=== PATIENT | female | born 1990 | race Caucasian/White ===

== ENCOUNTER 2023-11-01 19:57 | Outpatient (REF) | payer BC, SELFPAY ==
[2023-11-06 09:07] LABS: Age Gdln ACOG Testing Note (.); HPV Aptima Negative (Negative); IGP, Aptima HPV, rfx 16/18,45 Note (.)
== END 2023-11-01 19:58 | disposition home or self-care (01) ==
LOC: LAB 19:57
PROVIDERS: Visit Provider Physician Assistant
DX: Z01.419 Encounter for gynecological examination (general) (routine) without abnormal findings (principal)
CPT/HCPCS: 87624; G0145

== ENCOUNTER 2024-12-30 20:46 | Outpatient (REF) | payer BC, SELFPAY ==
--- OUTSIDE RECORDS SUMMARY | 2024-12-30 20:50 | XMS_ITS | CCD ---
Author Organization [facility] Care Team Providers Care Putty Maker Name Role Phone OCTAVIANO, DR GRAYSON Canales Admitting Unavailable OCTAVIANO, DR GRAYSON Canales Attending Unavailable RACHELLE, DR MARMOLEJO Primary Care Unavailable OCTAVIANO, DR GRAYSON Canales Consulting Unavailable OCTAVIANO, DR GRAYSON Canales Admitting Unavailable OCTAVIANO, DR GRAYSON Canales Attending Unavailable RACHELLE, DR MARMOLEJO Primary Care Unavailable ADELAIDA, DR REEDER Admitting Unavailable ADELAIDA, DR REEDER Attending Unavailable RACHELLE, DR MARMOLEJO Primary Care Unavailable ADELAIDA, DR REEDER Consulting Unavailable PRINCESS DUDLEY Attending Unavailable ADELAIDA, VARINDER Attending Unavailable George Oreilly MD Primary Care Provider Medications Current Medications Medication Drug Class(es) Dates Sig (Normalized) Sig (Original) citalopram 20 mg oral tablet (2 sources) Serotonin Reuptake Inhibitor citalopram (CeleXA) 20 MG tablet Active Ethinyl Estradiol / Ferrous fumarate / Norethindrone (4 sources) Estrogen Start: 07-22-2024 End: 08-19-2024 take 1 tablet by mouth once daily, then take 1 tablet by mouth once daily norethindrone-eth inyl estradiol (11/18) 1-20 MG-MCG tablet Indications: control counseling Take 1 tablet by mouth Daily for 28 days Take 1 tablet by mouth daily 28 tablet 11 07/22/2024 08/19/2024 Active End: 07-22-2024 norethindrone-ethinyl estrad iol (11/18) 1-20 MG-MCG tablet Take 1 tablet by mouth Daily 07/22/2024 Discontinued (Therapy completed) valACYclovir 500 mg oral tablet (2 sources) Herpesvirus Nucleoside Analog DNA Polymerase Inhibitor, Herpes Simplex Virus Nucleoside Analog DNA Polymerase Inhibitor, Herpes Zoster Virus Nucleoside Analog DNA Polymerase Inhibitor Start: 07-22-2024 End: 08-21-2024 take 1 tablet by mouth once daily valACYclovir (Valtrex) 500 MG tablet Indications: HSV (herpes simplex virus) infection Take 1 tablet (500 mg) by mouth Daily 30 tablet 11 07/22/2024 08/21/2024 Active Completed/Discontinued Medications Medication Drug Class(es) Dates Sig (Normalized) Sig (Original) busPIRone hydrochloride 7.5 mg oral tablet (3 sources) Start: 08-28-2023 End: 07-22-2024 take 1 tablet by mouth in the morning busPIRone (Buspar) 7.5 MG tablet Take 7.5 mg by mouth in the morning and 7.5 mg before bedtime. 08/28/2023 07/22/2024 Discontinued 24 hr venlafaxine 75 mg extended release oral capsule (3 sources) Serotonin and Norepinephrine Reuptake Inhibitor End: 07-22-2024 take 1 capsule by mouth every twenty-four hours in the morning venlafaxine XR (Effexor XR) 75 MG 24 hr capsule Take 75 mg by mouth in the morning. Do not crush or chew.. 07/22/2024 Discontinued Problems Active Problems Problem Classification Problem Date Documented Date Episodic/Chronic Anxiety disorders (3 sources) Generalized anxiety disorder; Translations: [Generalized anxiety disorder] Onset: 10-11-2023 10-11-2023 Chronic Immunizations and screening for infectious disease (1 source) Encounter for screening for human papillomavirus (HPV); Translations: [ENC SCREENING HUMAN PAPILLOMAVIRUS] Onset: 09-29-2021 Episodic Other aftercare (5 sources) Patient encounter status; Translations: [Other oysterman (current) drug therapy] Onset: 10-11-2023 10-11-2023 Episodic Other screening for suspected conditions (not mental disorders or infectious disease) (4 sources) Encounter for screening for malignant neoplasm of cervix; Translations: [ENC SCREENING MALIG NEOPLASM CERV] Onset: 09-20-2021 Episodic Other upper respiratory disease (3 sources) Allergic rhinitis due to animals; Translations: [Allergic rhinitis due to animal (cat) (dog) hair and dander] Onset: 10-11-2023 10-11-2023 Chronic Viral infection (5 sources) Herpes simplex; Translations: [Herpesviral infection, unspecified] Onset: 10-11-2023 10-11-2023 Episodic Past or Other Problems Problem Classification Problem Date Documented Da te Episodic/Chronic Other nutritional; endocrine; and metabolic disorders (3 sources) Overweight; Translations: [Overweight] Onset: 10-11-2023 10-11-2023 Episodic Residual codes; unclassified (3 sources) Insomnia; Translations: [Sleep disorder, unspecified] Onset: 10-11-2023 10-11-2023 Episodic Varicose veins of lower extremity (7 sources) Varicose veins of bilateral lower extremities with pain; Translations: [Varicose veins of lower extremity] Onset: 11-26-2021 Episodic Results Test Name Value Interpretation Reference Range Facility Cytology Cervical or vaginal smear or [facility]-26 VC COMP CONSULTATION Patient: KHLOE VOSS Exam Date: 11/26/2021 : 1990 Gender:F Ordering : DR GRAYSON BRUMFIELD M.D. Admission #: [id number] Family : Order #: [id number] CLICK HERE TO VIEW EXAM CORRECTION Corrected on: 11/26/2021; RADIOLOGY REPORT PROCEDURE: VC VEIN CENTER CONSULTATION VEIN CENTER - OFFICE VISIT INITIAL COMPARISON: None. PROGRESS NOTES: 31-year-old female who presents with a 3 year history of lower extremity varicose veins. The patient complains of bulging dilated varicose veins with muscle cramps and swelling. This began after her last . The patient's rates her pain as a 4 on a scale of 1-10. 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 The patient does get relief with leg elevation and rest which is difficult to do well she is working. The patient's symptoms have progressed over the last year. The patient has worn compression stockings for approximately 3 years. Occasional over the counter analgesics for the pain. The patient denies any signs and symptoms to suggest arterial ischemia. The patient describes a family history significant for varicose veins in her mother. . Her younger child is 3 years old. The patient has never smoked. No drug use. Occasional social alcohol use. No history of deep venous thrombus or pulmonary embolus. See separate history and physical for medication list. No prior treatment for varicose or spider veins. Nursing notes were reviewed. After history and physical exam I discussed at length the pathophysiology of venous hypertension and possible treatments, therapies and strategies available. We discussed at length the importance of elevating the lower extremities above the level of the heart, increased physical activity and compression stocking use. Ultrasound venous reflux study performed the same day was discussed at length with the patient. The report demonstrates moderate right great and small saphenous vein venous insufficiency. Mild to moderate left great saphenous vein venous insufficiency. Bilateral branch saphenous incompetent tributaries/varicose veins. PHYSICAL EXAM: The right leg demonstrates scattered varicose veins along the posterior thigh and popliteal fossa extending to the great saphenous vein. No subcutaneous edema, active ulceration, erythema or hemosiderin staining. The left leg demonstrates scattered varicose veins along the posterior thigh and popliteal fossa extending to the great saphenous vein. No subcutaneous edema, active ulceration, erythema or hemosiderin staining. Both thighs, legs and feet were symmetrically warm to the touch. Good posterior tibial and dorsalis pedis pulses were present bilaterally. IMPRESSION: 1. Moderate right great and small saphenous vein, [id number] left small saphenous vein venous insufficiency 2. Moderate bilateral lower extremity varicose veins, tributaries off the great saphenous veins 3. No lower extremity subcutaneous edema 4. No flow significant arterial disease 5. CEAP: C2, Ep, As, Pr PLAN: 1. Endovenous laser ablation right great saphenous vein, possibly right small saphenous vein in the future 2. Microfoam chemical ablation bilateral branch saphenous tributaries / varicose veins 3. oil heaterman use of 20-30mm of compression stockings 4. Elevated legs and increased physical activity for symptomatic relief Nurse notes, history and physical were reviewed and confirmed, see attached forms. The nurse was present throughout the physical exam and consultation Dictated by: Grayson Brumfield MD on 11/26/2021 at 14:40 Approved by: Grayson Brumfield MD on 11/26/2021 at 14:46 Normal [facility] VC VENOUS REFLUX ROLAND LMTon 0 11-26-2021 VC VENOUS REFLUX ROLAND LMT Patient: KHLOE VOSS Exam Date: 11/26/2021 : 1990 Gender:F Ordering : DR GRAYSON BRUMFIELD M.D. Admission #: [id number] Family : Order #: [id number] CLICK HERE TO VIEW EXAM RADIOLOGY REPORT PROCEDURE: VEIN CENTER ULTRASOUND VENOUS REFLUX BILATERAL LIMTED COMPARISON: None. INDICATIONS: Pain co-occurrent and due to varicose veins of bilateral legs I83.813 TECHNIQUE: Duplex imaging of the lower extremity to assess the deep and superficial venous system for the presence of deep or superficial venous incompetence and to document the location and severity of disease. The study includes evaluation of the great saphenous vein (GSV), anterior accessory saphenous vein (AASV) and small saphenous vein (SSV). Patient scanned in reverse Trendelenburg and standing. FINDINGS: RIGHT LOWER EXTREMITY: Saphenofemoral Junction Reflux: Yes 7.8mm 0.5 sec GSV: Diam (mm) Reflux/ Time (sec) Proximal Thigh 6.2 No Mid Thigh 5.4 Yes 5.1 Distal Thigh 4.4 Yes 4.7 Prox Calf 2.5 Yes 3.6 Mid Calf 3.5 Yes 6.0 Saphenopopliteal Junction Reflux: 3.2mm No SSV: Proximal Calf 3.7 Yes 5.5 Mid Calf 2.4 No AASV: Proximal Thigh 3.0 No Mid Thigh Distal Thigh Thrombi: None. Compressibility: Normal. Flow: Normal. Preforator: Small counter tender proximal medial thigh measures 2.2 mm. Tech Note: Incompetent right SFJ, competent SPJ. Incompetent varicose vein arising from distal thigh GSV measures 5.1 mm with 6.3 seconds of reflux. Extends to popliteal and mid posterior calf. LEFT LOWER EXTREMITY: Saphenofemoral Junction Reflux: No 8.4 mm 0 sec GSV: Diam (mm) Reflux/Time (sec) Proximal Thigh 4.6 No Mid Thigh 5.2 No Distal Thigh 4.9 No Prox Calf 2.7 Yes 3.2 Mid Calf 2.9 Yes 1.4 Saphenopopliteal Junction Relux: 3.5 mm No SSV: Proximal Calf 4.7 No Mid Calf 3.4 No AASV: Proximal Thigh 3.0 No Mid Thigh Distal Thigh Thrombi: None. Compressibility: Normal. Flow: Normal. Monitoring Engineer: Distal calf medial, measures 2.0 mm with 1.5 seconds of reflux. Distal medial thigh, 2.5 mm. Tech Note: Incompetent posterior leg varicose vein from prox thigh to mid calf measures 4.8 mm with 3.3 seconds of reflux. CONCLUSION: 1. Moderate right great and small saphenous vein venous insufficiency 2. Mild to moderate venous insufficiency distal left great saphenous vein 3. Incompetent thigh leg varicose veins arising from the great saphenous veins Dictated by: Grayson Brumfield MD on 11/26/2021 at 14:11 Approved by: Grayson Brumfield MD on 11/26/2021 at 14:13 Normal [facility] PAP ACOG PANEL 2: 30 to 65on 09-27-2021 . . Normal [facility] Comment on above: Result Comment: Perf ormed at: WB Performed By: #### [id number] #### [facility] [address] [place] [address] Dr. Deana Sepulveda Age Gdln ACOG Testing 30-65 Normal [facility] Comment on above: Performed By: #### [id number] #### [facility] [address] [place] [address] Dr. Deana Sepulveda DIAGNOSIS: Comment Normal [facility] Comment on above: Result Comment: NEGA TIVE FOR INTRAEPITHELIAL LESION OR MALIGNANCY. Performed at: WB Performed By: #### [id number] #### [facility] [address] [address] [address] Deana Sepulveda HPV Aptima Negative Normal Negative [facility] Comment on above: Result Comment: This nucleic acid amplification test detects fourteen high-risk HPV types (16,18,31,33,35,39,45,51,52,56,58,59,66,68) without differentiation. Performed at: =G Performed By: #### [id number] #### [facility] [address] [address] [address] Deana Sepulveda Methodology: Comment Normal [facility] Comment on above: Result Comment: This liquid based ThinPrep(R) pap test was screened with the use of an image guided system. Performed at: WB Performed By: #### [id number] #### [facility] [address] [place] [address] Dr. Deana Sepulveda Note: Comment Normal [facility] Comment on above: Result Comment: The Pap smear is a screening test designed to aid in the detection of premalignant and malignant conditions of the uterine cervix. It is not a diagnostic procedure and should not be used as the sole means of detecting cervical cancer. Both false-positive and false-negative reports do occur. . Performed at: WB Performed By: #### [id number] #### [facility] [address] [place] [address] Dr. Deana Sepulveda Performed by: Comment Normal [facility] Comment on above: Result Comment: Papito Britt, Division Commander (ASCP) Performed at: WB Performed By: #### [id number] #### [facility] [address] [address] [address] Deana Sepulveda Specimen adequacy: Comment Normal [facility] Comment on above: Result Comment: Sati sfactory for evaluation. Endocervical and/or squamous metaplastic cells (endocervical component) are present. Performed at: WB Performed By: #### [id number] #### [facility] [address] [place] [address] Dr. Deana Sepulveda Vital Signs Date Time Vital Sign Value Performing Clinician Faci lity 07-22-2024 11:04-0400 Body weight 81.65 kg Varinder Adelaida DO Work Phone: [facility] 07-22-2024 11:04-0400 Diastolic blood pressure 72 mm[Hg] Varinder Adelaida DO Work Phone: [facility] 07-22-2024 11:04-0400 Systolic blood pressure 180 mm[Hg] Varinder Adelaida DO Work Phone: [facility] Encounters Encounter Date Encounter Type Care Provider Facility Start: 07-22-2024 End: 07-22-2024 Bamboo flowsheet Varinder Adelaida DO Work Phone: [facility] Start: 07-22-2024 End: 07-22-2024 Bamboo flowsheet Varinder Adelaida DO Work Phone: [facility] Start: 07-22-2024 End: 07-22-2024 ambulatory VARINDER ADELAIDA Not Available Start: 07-22-2024 End: 07-22-2024 Office outpatient visit 15 minutes Varinder Adelaida DO Work Phone: [facility] Comment on above: control counse elisabeth; HSV (herpes simplex virus) infection Start: 11-01-2023 End: 11-01-2023 ambulatory PRINCESS DUDLEY Not Available Start: 12-28-[address] GRAYSON BRUMFIELD Facilit y:[facility] Start: 11-26-2021 End: 11-27-[address] GRAYSON BRUMFIELD Facility:[facility] Start: 09-20-2021 End: 09-20-[address] VARINDER SON Facility:[facility] Procedures Date Procedure Procedure Detail Performing Clinician Start: 11-01-2023 Microscopic observat ion [Identifier] in Cervix by Cyto stain Varinder Son DO Work Phone: Start: 11-01-2023 Cytp cerv/vag auto t hin layer prep mnl screen Princess Dudley PA Work Phone: Plan of Treatment Date Care Activity Detail Author Start: 11-01-2028 Screening for malign ant neoplasm of cervix [facility] Start: 01-08-2025 End: 01-08-2025 Patient encounter procedure 01/08/2025 10:00 AM EDT Office Visit [facility] [address] [place] [address] Varinder Son, DO [address] [place] [address] [facility] Start: 06-30-2024 Influenza vaccination Influenza Vacc ine (#1) [facility] Start: 2021 Screening for malign ant neoplasm of cervix [facility] Start: 01-18-2012 Screening for malign ant neoplasm of cervix Pap Smear [facility] Immunizations Immunization Date Immunization Notes Care Provider Fa cility 07-28-2020 influenza virus vacc ine, unspecified formulation Varinder Son DO Work Phone: [facility] Payers Date Payer Category Payer Unknown BCBS BCBS xxxxxx [id number] 2017-Present [phone] [address] [place] [address] [id number] 1990 Unknown [id number] 1990 Unknown [id number] 1990 Unknown [id number] 1990 Unknown [id number] 1990 Unknown [id number] 1958 Unknown [id number] Social History Date Type Detail Facility Start: 10-11-2023 Tobacco smoking stat [facility] Never smoked tobacco [facility] Start: 10-11-2023 History of Social function [facility] Start: 10-11-2023 Tobacco use panel [facility] Start: 1990 Sex assigned at Female [facility] Start: 10-04-2023 Gender identity Identifies as female gender (finding) [facility] Start: 10-04-2023 Sexual orientation Pansexual [facility] History of Present illness Narrative 07-22-2024 Alecia Schmitt LPN - 07/22/2024 10:40 AM EDT Note Date & Type Note Facility 07-22-2024 History of Presen t illness Narrative Reason for Appointment: Patient ID: Khloe Voss is a 34 y.o. female who presents for Contraception (Pt present today to discuss b/c) Patient presents today for Consult appointment. MEDICATIONS Current Outpatient Medications Medication Instructions citalopram (CeleXA) 20 MG tablet ALLERGIES No Known Allergies PROBLEMS Active Ambulatory Problems Diagnosis Date Noted Allergic rhinitis due to animals 10/11/2023 Generalized anxiety disorder (CMS/HCC) 10/11/2023 HSV (herpes simplex virus) infection 10/11/2023 Medication management 10/11/2023 Overweight 10/11/2023 Trouble in sleeping 10/11/2023 Varicose veins of bilateral lower extremities with pain 10/11/2023 Resolved Ambulatory Problems Diagnosis Date Noted No Resolved Ambulatory Problems Past Medical History: Diagnosis Date Emphysema of lung (CMS/HCC) MEGHAN (generalized anxiety disorder) (CMS/HCC) MDD (major depressive disorder), recurrent episode, moderate (HCC) (CMS/HCC) Positive depression screening HISTORY PAST MEDICAL HISTORY SOCIAL HISTORY Past Medical History: Diagnosis Date Allergic rhinitis due to animals Emphysema of lung (CMS/HCC) MEGHAN (generalized anxiety disorder) (CMS/HCC) HSV (herpes simplex virus) infection MDD (major depressive disorder), recurrent episode, moderate (HCC) (CMS/HCC) Medication management Overweight Positive depression screening Trouble in sleeping Varicose veins of bilateral lower extremities with pain Social History Tobacco Use Smoking status: Never Smokeless tobacco: Not on file Substance Use Topics Alcohol use: Not on file Drug use: Not on file FAMILY HISTORY Family History Problem Relation Name Age of Onset Diabetes Mother Hypertension Mother Hyperlipidemia Mother Cancer Mother Other (Varicose veins) Mother Breast cancer Mother Thyroid disease Mother Heart attack Sister Diabetes Maternal Grandfather Cancer Maternal Grandfather Pancreatic cancer Maternal Grandfather SURGICAL HISTORY Past Surgical History: Procedure Laterality Date CHEST TUBE INSERTION 2019 IR CHEST DRAIN PLACEMENT 01/21/2020 IR CHEST DRAIN PLACEMENT 01/21/2020 REVIEW OF SYSTEMS Review of Systems: Review of Systems All other systems reviewed and are negative. OBJECTIVE Objective: Physical Exam Constitutional: Appearance: Normal appearance. She is well-developed. Cardiovascular: Rate and Rhythm: Normal rate and regular rhythm. Pulmonary: Effort: Pulmonary effort is normal. Breath sounds: Normal breath sounds. Abdominal: General: Bowel sounds are normal. There is no distension. Palpations: Abdomen is soft. Tenderness: There is no abdominal tenderness. There is no guarding or rebound. Musculoskeletal: General: No swelling. Normal range of motion. Right lower leg: No edema. Left lower leg: No edema. Neurological: Mental Status: She is alert and oriented to person, place, and time. Skin: General: Skin is warm and dry. Psychiatric: Mood and Affect: Mood normal. Behavior: Behavior normal. Vitals and nursing note reviewed. Exam conducted with a care professional present. Vitals: There is no height or weight on file to calculate BMI. BP: 180/72 No LMP recorded. ASSESSMENT & PLAN ICD-10-CM 1. control counseling Z30.09 Patient presents today for control consult. Patient does not desire to have any children at this time. sent to pharmacy along with refill on Valtrex. Patient to schedule annual on her way out of office. Documented by Alecia Schmitt LPN on behalf of: Varinder Son DO documented in this encounter [facility] Evaluation note Note Date & Type Note Facility Evaluation note Diagnosis control counseling HSV (herpes simplex virus) infection Herpes simplex without mention of complication documented in this encounter [facility] Summary Purpose Family History No Family History Records FoundNo Family History Records Found Advance Directives No Advanced Directives Records FoundNo Advanced Directives Records Found Additional Source Comments INFORMATION SOURCE (unrecogn ized section and content) DATE CREATED AUTHOR 12/20/2021 [facility] DATE CREATED AUTHOR AUTHOR'S ORGANIZ ATION 07/24/2024 [facility] EPIC Care Teams (unrecognized sec tion and content) Putty Maker Relationship Specialty Start Date End Date George Oreilly MD [address] [place] [address] PCP - General Family Medicine 10/11/23 Putty Maker Relationship Specialty Start Date End Date George Oreilly MD [address] [place] [address] PCP - General Family Medicine 10/11/23 Reason for Visit (unrecogniz ed section and content) Reason Comments Contraception Pt present today to discuss b/c FOR RECORDS PERTAINING TO PATIENTS WHO ARE OR HAVE BEEN ENROLLED IN A CHEMICAL DEPENDENCY/SUBSTANCEABUSE PROGRAM, SOME INFORMATION MAY BE OMITTED. This clinical summary was aggregated from multiple sources. Caution should be exercised in using it in the provision of clinical care. This summary normalizes information from multiple sources, and as a consequence, information in this document may materially change the coding, format and clinical context of patient data. In addition, data may be omitted in some cases. CLINICAL DECISIONS SHOULD BE BASED ON THE PRIMARY CLINICAL RECORDS. [employer] provides no warranty or guarantee of the accuracy or completeness of information in this document.
[2025-01-03 17:08] LABS: Age Gdln ACOG Testing Note (.); HPV Aptima Negative (Negative); IGP, Aptima HPV, rfx 16/18,45 Note (.)
== END 2024-12-30 20:47 | disposition home or self-care (01) ==
LOC: LAB 20:46
PROVIDERS: Visit Provider Obstetrics & Gynecology
DX: Z01.419 Encounter for gynecological examination (general) (routine) without abnormal findings (principal)
CPT/HCPCS: 87624; 88175